=== PATIENT | male | born 1980 | race Caucasian/White ===

== ENCOUNTER 2016-12-22 10:40 | Emergency (ER) | payer SELFPAY ==
[~2016-12-22] VITALS: Ht 175.3 cm; Wt 68.0 kg
[2016-12-22 10:56] VITALS: BP 113/83
[2016-12-22] MEDS ORDERED: CYCL10TA2 PO (11:29)
--- NOTE | 2016-12-22 11:30 | PHYS DOC ---
Past Medical History Past Medical History: Other Additional Past Medical Histor: chronic low back pain Past Surgical History: No Surgical History Additional Information: 09/22 ppd Alcohol Use: None Drug Use: None Adult General Chief Complaint Chief Complaint: BACK PAIN OR INJURY [facility] Patient is a 36 year old white male presents to the emergency department with complaint of left flank pain. He states that he has been moving heavy equipment at work as developed increased pain and discomfort. Patient states he has not taken anything for pain and discomfort last 3 days as he does not have any money to purchase medications. Patient states that he does not have a primary care physician because he is an indigent. Patient denies any loss of bowel or bladder. He denies any urinary frequency urgency or pain with urination. Patient denies any numbness or tingling down to his lower extremities. Review of Systems Review of Systems Constitutional: Denies fever or chills [] Eyes: Denies change in visual acuity, redness, or eye pain [] HENT: Denies nasal congestion or sore throat [] Respiratory: Denies cough or shortness of breath [] Cardiovascular: No additional information not addressed in HPI [] GI: Denies abdominal pain, nausea, vomiting, bloody stools or diarrhea [] : Denies dysuria or hematuria [] Musculoskeletal: mid back pain denies joint pain [] Integument: Denies rash or skin lesions [] Neurologic: Denies headache, focal weakness or sensory changes [] Allergies Allergies Allergies Coded Allergies Type Severity Reaction Last Updated Verified No Known Drug Allergies 12/22/16 No Physical Exam Physical Exam Constitutional: Well developed, well nourished, no acute distress, non-toxic appearance. [] HENT: Normocephalic, atraumatic, bilateral external ears normal, oropharynx moist, no oral exudates, nose normal. [] Eyes: PERRLA, EOMI, conjunctiva normal, no discharge. [] Neck: Normal range of motion, no tenderness, supple, no stridor. [] Cardiovascular:Heart rate regular rhythm, no murmur [] Lungs & Thorax: Bilateral breath sounds clear to auscultation [] Skin: Warm, dry, no erythema, no rash. [] Back: No thoracic, lumbar spine tenderness, no step-offs no deformities no crepitus noted. Patient does have tenderness over the left flank area. Extremities: No tenderness, no cyanosis, no clubbing, ROM intact, no edema. [] Neurologic: Alert and oriented X 3, normal motor function, normal sensory function, no focal deficits noted. [] Psychologic: Affect normal, judgement normal, mood normal. [] Current Patient Data Vital Signs Vital Signs Date Time Temp Pulse Resp B/P Pulse Ox O2 Delivery O2 Flow Rate FiO2 12/22/16 10:56 99.5 92 20 113/83 100 Room Air 99.5 EKG EKG [] Radiology/Procedures Radiology/Procedures [] Course & Med Decision Making Course & Med Decision Making Pertinent Labs and Imaging studies reviewed. (See chart for details) Patient will be discharged home in stable condition. Recommended ibuprofen 800 mg every 8 hours with food stop taking few develop an upset stomach. We'll provide Flexeril for muscle spasms. Patient was informed that this medication will cause drowsiness do not take any be alert and oriented. Patient agrees with discharge instructions treatment regimens and follow-up recommendations. Since symptoms to return back to emergency department as been provided. [] Dragon Disclaimer Dragon Disclaimer This electronic medical record was generated, in whole or in part, using a voice recognition dictation system. Departure Departure Impression: Primary Impression: Back pain Disposition: HOME, SELF-CARE Condition: STABLE Referrals: NO PCP (PCP) Patient Instructions: Back Pain, Adult, [id number] Additional Instructions: Activity as tolerated Ibuprofen 800 mg every 8 hours with food, stop taking if you develop upset stomach Flexeril will cause drowsiness do not take if you need to be alert and oriented Ice packs on 20 minute and off 20 minutes several times a day Followup with your primary care provider in 3-5 days Return to emergency department as needed for signs and symptoms that become worse. Scripts Cyclobenzaprine Hcl 10 Mg Qbytic84 Mg PO TID #30 TAB Prov:ERICH JANSEN APRN 12/22/16 ERICH JANSEN APRN Dec 22, 2016 11:30
[2016-12-22] MEDS ORDERED: IBUPROFEN 800 MG TABLET. PO ONE ×2 (11:34→11:45)
== END 2016-12-22 11:41 | disposition home or self-care (01) ==
LOC: ER 10:40
DX: M54.5 Low back pain (principal); R10.9 Unspecified abdominal pain; X50.0XXA Overexertion from strenuous movement or load, initial encounter; X50.9XXA Other and unspecified overexertion or strenuous movements or postures, initial encounter; Y93.89 Activity, other specified; Y99.8 Other external cause status; Y92.89 Other specified places as the place of occurrence of the external cause
CPT/HCPCS: 99283